=== PATIENT | female | born 1960 | race Caucasian/White ===

== ENCOUNTER 2020-04-29 07:28 | Outpatient (REF) | payer OTHER, SELFPAY ==
[2020-04-29 11:46] LABS: Cholesterol 229 mg/dL; HDL Cholesterol 50 mg/dL; LDL Cholesterol Calculated 166 mg/dl; Triglycerides 66 mg/dL
[2020-04-29 11:59] LABS: Free T4 (Free Thyroxine) 1.19 ng/dL (0.71-1.85)
[2020-05-04 12:52] LABS: Vitamin D 25-OH, D2 <4 ng/mL; Vitamin D 25-OH, D3 32 ng/mL; Vitamin D 25-OH, Total 32 ng/mL (30-100)
== END 2020-04-29 07:29 | disposition home or self-care (01) ==
LOC: HO.HMGCLDS 07:28
PROVIDERS: PCP Internal Medicine; Visit Provider Internal Medicine
DX: Z20.828 Contact with and (suspected) exposure to other viral communicable diseases (principal); E03.9 Hypothyroidism, unspecified; E78.5 Hyperlipidemia, unspecified; M85.88 Other specified disorders of bone density and structure, other site
CPT/HCPCS: 80061; 82306; 84439; 84443; 87635

== ENCOUNTER 2021-03-01 07:55 | Outpatient (REF) | payer OTHER, SELFPAY ==
[2021-03-01 12:00] LABS: Cholesterol 231 mg/dL; HDL Cholesterol 49 mg/dL; LDL Cholesterol Calculated 163 mg/dl; Triglycerides 99 mg/dL
[2021-03-01 12:15] LABS: Free T4 (Free Thyroxine) 1.22 ng/dL (0.71-1.85); Thyroid Stimulating Hormone 0.53 uIU/mL (0.32-4.0); Vitamin D 25-OH Total 41.7 ng/mL (>30)
== END 2021-03-01 07:56 | disposition home or self-care (01) ==
LOC: HO.HMGCLDS 07:55
PROVIDERS: PCP Internal Medicine; Visit Provider Internal Medicine
DX: E03.9 Hypothyroidism, unspecified (principal); E78.5 Hyperlipidemia, unspecified; M85.80 Other specified disorders of bone density and structure, unspecified site
CPT/HCPCS: 36415; 80061; 82306; 84439; 84443

== ENCOUNTER 2022-08-03 08:07 | Outpatient (REF) | payer OTHER, SELFPAY ==
[2022-08-03 12:07] LABS: Alanine Aminotransferase 25 U/L (0-31); Anion Gap 10 (12-20); Aspartate Amino Transferase 14 U/L (5-31); Blood Urea Nitrogen 22 mg/dL (9-16); Carbon Dioxide 32 mmol/L (22-29); Chloride 103 mmol/L (96-108); Cholesterol 268 mg/dL; Estimated Glomerular Filt Rate > 60; Glucose Fasting 102 mg/dL (60-99); HDL Cholesterol 44 mg/dL; LDL Cholesterol Calculated 195 mg/dl; Potassium 4.1 mmol/L (3.3-5.1); Sodium 141 mmol/L (135-145); Triglycerides 145 mg/dL
[2022-08-03 12:10] LABS: Free T4 (Free Thyroxine) 1.01 ng/dL (0.71-1.85); Thyroid Stimulating Hormone 1.14 uIU/mL (0.32-4.0); Vitamin D 25-OH Total 32.7 ng/mL (>30)
== END 2022-08-03 08:08 | disposition home or self-care (01) ==
LOC: HO.HMGCLDS 08:07
PROVIDERS: PCP Internal Medicine; Visit Provider Internal Medicine
DX: M85.80 Other specified disorders of bone density and structure, unspecified site (principal); E78.5 Hyperlipidemia, unspecified; E03.9 Hypothyroidism, unspecified
CPT/HCPCS: 36415; 80048; 80061; 82306; 84439; 84443; 84450; 84460

== ENCOUNTER 2022-09-13 06:31 | Day surgery (SDC) | payer OTHER, SELFPAY ==
--- NOTE | 2022-09-12 09:48 | HO.ANESPROP2 ---
Documented by User: Carole Muhammad NP 09/12/22 09:49 HPI - Anesthesia Eval Consult details Narrative: 62yo F for Colonoscopy PMFSH Active Problems Active Problems: All Active Problems (Updated 07/11/22 @ 18:17 by Gayatri Dominguez MD) Fracture of glenoid process of right scapula (Acute) Fracture of right inferior pubic ramus (Acute) Osteopenia after menopause (Acute) Dyslipidemia (Acute) Acquired hypothyroidism (Acute) Past Medical History Medical History Acquired hypothyroidism Dyslipidemia Fracture of glenoid process of right scapula Fracture of right inferior pubic ramus Osteopenia after menopause Family History Family History Father Medical history non-contributory Mother Medical history non-contributory Sister No problems noted. Son No problems noted. Son No problems noted. Son No problems noted. Surgical History Surgical History H/O colonoscopy History of partial thyroidectomy Hx of myomectomy Social History Social History Housing: House Alcohol intake: current Alcohol intake frequency: holidays/special occasions only Patient Tobacco Use Status: Never used Tobacco Use of substances other than those prescribed or required for medical reasons: No Are you DNR?: No Advance Directives: No Advance Directives Information Provided: Yes service: No Current occupational status: employed Meds Allergies Allergy/AdvReac Type Severity Reaction Status Date / Time meperidine [From DEMEROL] Allergy Unknown N/V, RASH Verified 09/13/22 06:39 oxycodone [OXYCODONE] AdvReac Intermediate NAUSEA Verified 09/13/22 06:39 Sulfa (Sulfonamide AdvReac Unknown Nausea and Verified 09/13/22 06:39 Antibiotics) Vomiting Darvon AdvReac Unknown vomiting Uncoded 09/13/22 06:39 Home Medications Medication Instructions Recorded Confirmed Last Taken Type cholecalciferol (vitamin D3) 50 50 mcg PO DAILY 05/10/20 09/13/22 Unknown History mcg (2,000 unit) capsule Exam Exam Date and Time: September 12, 2022 0948 Pertinent Lab Results Pertinent Lab Results: Laboratory Tests 04/02/18 08/03/22 07:36 08:17 WBC 4.2 L Hgb 14.6 Hct 44.2 Plt Count 190 Sodium 141 Potassium 4.1 Chloride 103 Carbon Dioxide 32 H BUN 22 H Creatinine 0.74 Assessment and Plan Assessment Anesthesia Assessment: Chart Reviewed Documented by User: Delilah Salguero MD 09/13/22 07:41 PMFSH Past Medical History Medical History Acquired hypothyroidism Dyslipidemia Fracture of glenoid process of right scapula Fracture of right inferior pubic ramus Osteopenia after menopause Family History Family History Father Medical history non-contributory Mother Medical history non-contributory Sister No problems noted. Son No problems noted. Son No problems noted. Son No problems noted. Surgical History Surgical History H/O colonoscopy History of partial thyroidectomy Hx of myomectomy History of Problems with Anesthesia: No Social History Social History Housing: House Alcohol intake: current Alcohol intake frequency: holidays/special occasions only Patient Tobacco Use Status: Never used Tobacco Use of substances other than those prescribed or required for medical reasons: No Are you DNR?: No Advance Directives: No Advance Directives Information Provided: Yes service: No Current occupational status: employed Meds Allergies Allergy/AdvReac Type Severity Reaction Status Date / Time meperidine [From DEMEROL] Allergy Unknown N/V, RASH Verified 09/13/22 06:39 oxycodone [OXYCODONE] AdvReac Intermediate NAUSEA Verified 09/13/22 06:39 Sulfa (Sulfonamide AdvReac Unknown Nausea and Verified 09/13/22 06:39 Antibiotics) Vomiting Darvon AdvReac Unknown vomiting Uncoded 09/13/22 06:39 Home Medications Medication Instructions Recorded Confirmed Last Taken Type cholecalciferol (vitamin D3) 50 50 mcg PO DAILY 05/10/20 09/13/22 Unknown History mcg (2,000 unit) capsule Exam Airway Mallampati Class: II TM Dist: >3cm Neck ROM: Full Loose/Missing/Broken Teeth: No Heart: RRR Lungs: CTA Assessment and Plan Assessment Anesthesia Assessment: Anesthesia Plan Discussed Final Anesthetic Review History of Problems with Anesthesia: No NPO: Yes ASA Class: II Final Preanesthetic Review: Meds/Allgs Chart Reviewed, Consent Obtained/Reviewed and Anes Risks/Benef Reviewed Patient Risk: Low Procedure Risk: Low Anesthetic Plan Anesthetic Plan: MAC: Disposition: Standard PACU
[2022-09-13 06:42] VITALS: BMI 26.6
[2022-09-13 06:47] VITALS: BP 113/76; PULSE 63; RESP 16; TEMP 36.2; O2SAT 100
[2022-09-13] MEDS: Lactated Ringers 1,000 ML 100 ML IVCONT (06:55)
[2022-09-13 08:37] VITALS: BP 90/50; PULSE 60; RESP 12; TEMP 36.6; O2SAT 97
--- NOTE | 2022-09-13 08:38 | PM.OP ---
Brief Operative Note Date of Service: 09/13/22 Pre-op diagnosis: Screening Post-op diagnosis: other (Colon polyps) Procedure: Colonoscopy to the cecum with hot snare polypectomy x 3, and bx/removal of polyps x 2. Surgeon: Jay Rae Anesthesia: MAC Was an Miniature Set Constructor used for this Procedure?: No Estimated blood loss (mL): 2.0 Pathology: other (A. Polyp at 60cm B. Cecal polyp C. Proximal ascending colon polyp D.Transverse colon polyp E. Polyp at 20cm) Condition: stable Disposition: PACU
[2022-09-13 08:52] VITALS: BP 102/66; PULSE 56; RESP 16; O2SAT 98
[2022-09-13 09:08] VITALS: BP 104/64; PULSE 50; RESP 16; TEMP 36.6; O2SAT 100
--- NOTE | 2022-09-13 20:39 | OP_ITS ---
/ SURGEON: Jay Rae MD INDICATIONS: The patient presents for followup of a personal history of tubular adenomas of the colon, family history of colon cancer, and colorectal cancer screening. Full consent has been obtained from her for this, including risks of bleeding and perforation. PREOPERATIVE DIAGNOSIS: POSTOPERATIVE DIAGNOSIS: PROCEDURE PERFORMED: Colonoscopy to the cecum with hot snare polypectomy x 3, and biopsy and removal of polyps x 2. ESTIMATED BLOOD LOSS: COMPLICATIONS: ANESTHESIA: Monitored anesthesia care. ASSISTANTS: SPECIMENS: PREOPERATIVE DIAGNOSES: Personal history of tubular adenomas of the colon, family history of colon cancer, and colorectal cancer screening. POSTOPERATIVE DIAGNOSES: Personal history of tubular adenomas of the colon, family history of colon cancer, colorectal cancer screening, colon polyps, diverticulosis, and internal hemorrhoids. PROCEDURE IN DETAIL: The patient was placed in the left lateral decubitus position. The digital rectal exam revealed no abnormalities. The Olympus video pediatric colonoscope was entered into the rectum and advanced easily to the cecum. Once in the cecum, I did identify the cecal pouch with appendiceal orifice and a normal-appearing ileocecal valve. The entire cecum was well-visualized. There was an approximately 10 mm polyp in the cecum, which was removed by hot snare polypectomy and recovered by suction. The polypectomy site appeared clean, without any sign of residual polyp nor bleeding. The scope was then slowly withdrawn assessing all mucosal surfaces carefully. Preparation was excellent after her 2 day prep. In the proximal ascending colon was an approximately 10 mm polyp which was removed by hot snare polypectomy and recovered by suction. The polypectomy site appeared clean, without any sign of residual polyp nor bleeding. In the transverse colon and at 60 cm were approximately 3 or 4 mm polyps, which were each biopsied and completely removed with a cold biopsy forceps. At 20 cm was an approximately 6 mm polyp which was removed by hot snare polypectomy and recovered by suction. The polypectomy site appeared clean, without any sign of residual polyp nor bleeding. I did not visualize any other polyps, colitis, nor angiodysplasia. There was a mild amount of sigmoid diverticulosis. In the rectum, the scope was retroflexed, visualizing internal hemorrhoids, but no other pathology. The rectal mucosa appeared normal. The scope was straightened and withdrawn from the patient. She tolerated the procedure well and was returned to the recovery area in stable condition. IMPRESSION: 1. Colon polyps. 2. Diverticulosis. 3. Internal hemorrhoids. PLAN: The results of the pathology will be checked. I would recommend a repeat colonoscopy in 5 years. She was advised not to use any aspirin or NSAIDS for one week. She as advised to continue her bowel regimen with some Metamucil and MiraLax regularly to avoid constipation. She would see me otherwise on a p.r.n. basis. This has been discussed with her via leaving a voicemail for him. MD YODIT Lutz/LEISA / [id number] MTDD
== END 2022-09-13 09:52 | disposition home or self-care (01) ==
PROVIDERS: PCP Internal Medicine; Visit Provider Internal Medicine
PROC: 0DJD8ZZ Inspection of Lower Intestinal Tract, Via Natural or Artificial Opening Endoscopic (ICD-10-PCS; CPT 45378; principal; 2022-09-13 07:30)
DX: Z12.11 Encounter for screening for malignant neoplasm of colon (principal); Z86.010 Personal history of colon polyps; Z80.0 Family history of malignant neoplasm of digestive organs; D12.0 Benign neoplasm of cecum; D12.2 Benign neoplasm of ascending colon; D12.3 Benign neoplasm of transverse colon; D12.4 Benign neoplasm of descending colon; D12.5 Benign neoplasm of sigmoid colon; K57.30 Diverticulosis of large intestine without perforation or abscess without bleeding; K64.8 Other hemorrhoids; E89.0 Postprocedural hypothyroidism; K59.00 Constipation, unspecified; E78.00 Pure hypercholesterolemia, unspecified; Z88.2 Allergy status to sulfonamides; Z88.8 Allergy status to other drugs, medicaments and biological substances; Z79.899 Other long term (current) drug therapy; Z98.890 Other specified postprocedural states
CPT/HCPCS: 45385; 45380; 88305; J2405

== ENCOUNTER 2023-03-16 08:18 | Outpatient (AMB) | payer OTHER, SELFPAY ==
[2023-03-16 08:21] VITALS: BP 118/68; PULSE 63; O2SAT 100; BMI 28.7
--- NOTE | 2023-03-16 08:21 | A.OFFPC_ITS ---
<Statement entered by Gayatri Dominguez MD - 08/02/25 23:59> This note has been administratively?closed. Vital Signs 03/16/23 08:21 Height 5 ft 4 in Weight 167 lb BMI 28.7 BP 118/68 Blood Pressure Location Rt brachial Position Sitting Pulse 63 Pulse Source Pulse Oximeter Pulse Oximetry (%) 100 Intake Visit Reasons: Physical exam Intake Note: pt is here for annual exam Unloading Checker Required: No Accompanied by: Self / Same As Patient Allergies meperidine (From DEMEROL) Allergy (Unknown, Verified 06/15/25 13:34) N/V, RASH oxycodone (OXYCODONE) Adverse Reaction (Intermediate, Verified 06/15/25 13:34) NAUSEA Sulfa (Sulfonamide Antibiotics) Adverse Reaction (Unknown, Verified 06/15/25 13:34) Nausea and Vomiting Darvon Adverse Reaction (Unknown, Uncoded 06/15/25 13:34) vomiting Tobacco use date assessed: 03/16/23 Dental Screening Dental Screen Date: 03/16/23 Did you have a dental visit in the last 12 months?: Yes Did you have a dental problem in the last 6 months where you did not have access to dental care?: No Was dental information given to patient?: Patient has dentist [facility] Medical History Osteopenia of multiple sites Fracture of glenoid process of right scapula Fracture of right inferior pubic ramus Dyslipidemia Acquired hypothyroidism Surgical History Hx of myomectomy H/O colonoscopy History of partial thyroidectomy Family History Father Medical history non-contributory Mother Medical history non-contributory Sister No problems noted. Son No problems noted. Son No problems noted. Son No problems noted. 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 1. Little interest or pleasure in doing things: not at all 2. Feeling down, depressed, or hopeless: not at all 3. Trouble falling or staying asleep, or sleeping too much: several days 4. Feeling tired or having little energy: several days 5. Poor appetite or overeating: not at all 6. Feeling bad about yourself - or that you are a failure or have let yourself or your family down: not at all 7. Trouble concentrating on things, such as reading the newspaper or watching television: not at all 8. Moving or speaking so slowly that other people could have noticed. Or the opposite - being so fidgety or restless that you have been moving around a lot more than usual: not at all 9. Thoughts that you would be better off or of hurting yourself in some way: not at all Total score: 2 Depression Screening Interpretation: Negative 18874 - PHQ-9 Billing: Yes Source: Developed by Drs. Jay Parmar, Bela Young, Everett Bell and colleagues, with an educational genaro from [employer]. Thrive Questionnaire Date Thrive assessed: 03/16/23 I am a: Patient What is your living situation today?: I have a steady place to live Within the past 12 months, did the food you bought not last and you didn't have the money to get more?: Never true Within the past 12 months, did you worry whether your food would run out before you got money to buy more?: Never true Do you have trouble paying for medicines?: No Do you have trouble getting transportation to medical appointments?: No Do you have trouble paying your heating and electricity bill?: No Do you have trouble taking care of your child, family member or friend?: No Do you have trouble with day-to-day activities such as bathing, preparing meals, shopping, managing finances, etc.?: No Are you currently unemployed and looking for a job?: No Are you interested in more education?: No Please select the resources that you would like help with: None Currently or been in a relationship where the following occur: no concerns reported AUDIT C Alcohol Use Questionnaire (AUDIT-C) 3. How often do you have six or more drinks on one occasion?: Never Total Score: 0 DUSTY-7 AMB Questionnaire DUSTY-7 Date DUSTY - 7 assessed: 03/16/23 Feeling nervous, anxious, or on edge: 0 = Not at all Not being able to stop or control worryin = Not at all Worrying too much about different things: 0 = Not at all Trouble relaxin = Several days Being so restless that it is hard to sit still: 0 = Not at all Becoming easily annoyed or irritable: 0 = Not at all Feeling afraid as if something awful might happen: 0 = Not at all Total DUSTY-7 score (0-4 normal; 5-9 mild; 10-14 moderate; 15-21 severe): 1 Source: Developed by Drs. Jay Parmar, Bela Young, Everett Bell and colleagues, with an educational genaro from [employer]. DUSTY-7 Assessment Billing DUSTY-7 Assessment Tool: DUSTY-7 Assessment 17633 Physical exam (Primary Care) Vital Signs: Last Vital Signs Pulse 63 03/16/23 08:21 BP 118/68 03/16/23 08:21 Pulse Ox 100 03/16/23 08:21 BMI result Body Mass Index 28.7 Tobacco/Smoking Status: Tobacco use Status Tobacco use date assessed 03/16/23 03/16/23 08:23 Patient Tobacco Use Status Never used Tobacco 03/16/23 08:23 e-Cigarette/Vaping Use Never Used 03/16/23 08:27 PHQ-9: PHQ-9 Score PHQ-9: Total score 2 03/16/23 09:29 Depression Screening Interpretation: Negative Thrive Assessment: Date of Thrive Assessment Date Thrive assessed 03/16/23 03/16/23 09:29 Currently or been in a relationship where the following occur: no concerns reported Coding Level of Care Code Admin Sign Off/No Billing Diagnoses Osteopenia after menopause M85.80 Dyslipidemia E78.5 Acquired hypothyroidism E03.9 Annual visit for general adult medical examination with abnormal findings Z00.01 Additional Codes DUSTY-7 Assessment Billing - DUSTY-7 Assessment Tool: DUSTY-7 Assessment 49948 ([id number])
== END 2023-03-16 09:56 | disposition home or self-care (01) ==
PROVIDERS: Visit Provider Internal Medicine
DX: M85.80 Other specified disorders of bone density and structure, unspecified site (principal); E78.5 Hyperlipidemia, unspecified; E03.9 Hypothyroidism, unspecified; Z00.01 Encounter for general adult medical examination with abnormal findings
CPT/HCPCS: 99499

== ENCOUNTER 2024-03-24 07:37 | Outpatient (REF) | payer OTHER, SELFPAY ==
[2024-03-24 11:30] LABS: Alanine Aminotransferase 22 U/L (0-31); Anion Gap 10 (12-20); Aspartate Amino Transferase 15 U/L (5-31); Blood Urea Nitrogen 17 mg/dL (9-16); Calcium 9.1 mg/dL (8.4-10.2); Carbon Dioxide 30 mmol/L (22-29); Chloride 106 mmol/L (96-108); Cholesterol 256 mg/dL (<200); Estimated Glomerular Filt Rate > 60; Glucose Fasting 95 mg/dL (60-99); HDL Cholesterol 44 mg/dL (>40); LDL Cholesterol Calculated 190 mg/dL (<100); Potassium 4.4 mmol/L (3.3-5.1); Sodium 142 mmol/L (135-145); Triglycerides 110 mg/dL (<150)
[2024-03-24 11:51] LABS: Free T4 (Free Thyroxine) 1.07 ng/dL (0.71-1.85); Thyroid Stimulating Hormone 0.77 uIU/mL (0.32-4.0); Vitamin D 25-OH Total 46.3 ng/mL (>30)
== END 2024-03-24 07:38 | disposition home or self-care (01) ==
LOC: HO.HMGCLDS 07:37
PROVIDERS: PCP Internal Medicine; Visit Provider Internal Medicine
DX: M85.80 Other specified disorders of bone density and structure, unspecified site (principal); E78.5 Hyperlipidemia, unspecified; E03.9 Hypothyroidism, unspecified; Z13.1 Encounter for screening for diabetes mellitus
CPT/HCPCS: 36415; 80048; 80061; 82306; 84439; 84443; 84450; 84460

== ENCOUNTER 2024-05-05 13:15 | Outpatient (AMB) | payer MEDICARE, SELFPAY ==
[2024-05-05 14:21] VITALS: BP 120/72; PULSE 66; O2SAT 99; BMI 27.3
--- NOTE | 2024-05-05 14:21 | A.OFFPC_ITS ---
Vital Signs 05/05/24 14:21 Height 5 ft 4 in Weight 159 lb BMI 27.3 BP 120/72 Blood Pressure Location Rt brachial Position Sitting Pulse 66 Pulse Source Pulse Oximeter Pulse Oximetry (%) 99 Oxygen Delivery Method Room Air Intake Visit Reasons: PE/secondary covers-reschedule from 03/28 Intake Note: 64-year-old lady with past medical history significant for hypothyroidism, os teopenia, dyslipidemia, here today for her physical exam.. Allergies meperidine [From DEMEROL] Allergy (Unknown, Verified 05/05/24 14:30) N/V, RASH oxycodone [OXYCODONE] Adverse Reaction (Intermediate, Verified 05/05/24 14:30) NAUSEA Sulfa (Sulfonamide Antibiotics) Adverse Reaction (Unknown, Verified 05/05/24 14:30) Nausea and Vomiting Darvon Adverse Reaction (Unknown, Uncoded 05/05/24 14:30) vomiting Medication List - Last Reconciled 05/05/24 by Gayatri Dominguez MD cholecalciferol (vitamin D3) 50 mcg PO DAILY levothyroxine 150 mcg PO DAILY Tobacco use date assessed: 05/05/24 Fall risk assessment: No Falls in past year Last assessed Fall Risk: 05/05/24 Dental Screening Dental Screen Date: 05/05/24 Did you have a dental visit in the last 12 months?: Yes Did you have a dental problem in the last 6 months where you did not have access to dental care?: No Was dental information given to patient?: Patient has dentist HPI PE/secondary covers-reschedule from 03/28 HPI0 Details 64-year-old lady with past medical histo ry significant for hypothyroidism, osteopenia, dyslipidemia, here today for her physical exam.. She is up-to-date with her screening mammogram, last done 03/26/2024 done at [facility] which showed no mammographic evidence of malignancy, last cervical cancer screening was done at [facility] as well on 06/06/2023 which came back negative for malignancy, negative HPV. She had a bone density scan done 09/20/2022 which showed osteopenia in lumbar spine, right femoral neck and right hip, with marked decrease in bone density in her right hip joint, She had a colonoscopy done by Dr. Rae 09/13/2022 with removal of 5 tubular adenoma polyp, repeat due again in 2027. She is up-to-date with her shingles vaccination and Tdap, but has not yet had her COVID booster all yearly flu shot. [facility] Medical History (Updated 05/05/24 @ 15:02 by Gayatri Dominguez MD) Osteopenia of multiple sites Fracture of glenoid process of right scapula Fracture of right inferior pubic ramus Osteopenia after menopause Dyslipidemia Acquired hypothyroidism Surgical History Hx of myomectomy H/O colonoscopy History of partial thyroidectomy Family History Father Medical history non-contributory Mother Medical history non-contributory Sister No problems noted. Son No problems noted. Son No problems noted. Son No problems noted. 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 Cognitive needs: No Hearing needs: No Vision needs: No Female Reproductive History Menstrual control method: none Menopause type: natural Date of last pap smear: 06/06/23 (Done at [facility], negative) History of abnormal pap smear: No History of STI: No Date of Mammogram: 03/26/24 (Done at [facility]) Date of last Bone Density Screenin09/20/22 (Osteopenia of multiple sites, done at [facility]) Questionnaire PHQ-9 Over the last 2 weeks, how often have you been bothered by any of the following problems? 1. Little interest or pleasure in doing things: not at all 2. Feeling down, depressed, or hopeless: not at all 3. Trouble falling or staying asleep, or sleeping too much: several days 4. Feeling tired or having little energy: not at all 5. Poor appetite or overeating: not at all 6. Feeling bad about yourself - or that you are a failure or have let yourself or your family down: not at all 7. Trouble concentrating on things, such as reading the newspaper or watching television: not at all 8. Moving or speaking so slowly that other people could have noticed. Or the opposite - being so fidgety or restless that you have been moving around a lot more than usual: not at all 9. Thoughts that you would be better off or of hurting yourself in some way: not at all Total score: 1 Depression Screening Interpretation: Negative Depression Screening Done: Yes 77992 - PHQ-9 Billing: Yes Source: Developed by Drs. Jay Parmar, Bela Young, Everett Bell and colleagues, with an educational genaro from [employer]. Thrive Questionnaire Date Thrive assessed: 05/05/24 I am a: Patient What is your living situation today?: I have a steady place to live Within the past 12 months, did the food you bought not last and you didn't have the money to get more?: Never true Within the past 12 months, did you worry whether your food would run out before you got money to buy more?: Never true Do you have trouble paying for medicines?: No Do you have trouble getting transportation to medical appointments?: No Do you have trouble paying your heating and electricity bill?: No Do you have trouble taking care of your child, family member or friend?: No Do you have trouble with day-to-day activities such as bathing, preparing meals, shopping, managing finances, etc.?: No Are you currently unemployed and looking for a job?: No Are you interested in more education?: No Please select the resources that you would like help with: None Currently or been in a relationship where the following occur: No concerns reported THRIVE Score: 0 AUDIT C Alcohol Use Questionnaire (AUDIT-C) 3. How often do you have six or more drinks on one occasion?: Never Total Score: 0 DUSTY-7 AMB Questionnaire DUSTY-7 Date DUSTY - 7 assessed: 05/05/24 Source: Developed by Drs. Jay Parmar, Bela Young, Everett Bell and colleagues, with an educational genaro from [employer]. DUSTY-7 Assessment Billing DUSTY-7 Assessment Tool: pt declined-do not bill Review of Systems Const Denies body aches, Denies fatigue, Denies fever(s), Denies headache(s) and Denies weakness Eyes Details: [facility] eye [facility] ENT Denies dizziness, Denies headache(s), Denies nasal congestion, Denies nasal discharge and Denies sore throat Card Denies chest pain, Denies lightheadedness, Denies palpitations and Denies dyspnea Resp Denies chest congestion, Denies cough, Denies dyspnea and Denies wheezing GI Denies abdominal pain, Reports constipation and Denies heartburn Denies urinary frequency, Denies dysuria and Denies urinary urgency Musc Reports no additional complaints Skin/Breast Denies lesions and Denies rash Neuro Denies dizziness, Denies headache(s) and Denies weakness Psych Reports no additional complaints Endo Denies fatigue, Denies polydipsia, Denies polyuria and Denies palpitations Esteban/Lymph Denies easy bruising Aller/Immun Denies seasonal rhinorrhea and Denies wheezing Physical exam (Primary Care) Vital Signs: Last Vital Signs Pulse 66 05/05/24 14:21 BP 120/72 05/05/24 14:21 Pulse Ox 99 05/05/24 14:21 Oxygen Delivery Method Room Air 05/05/24 14:21 BMI result Body Mass Index 27.3 Tobacco/Smoking Status: Tobacco use Status Tobacco use date assessed 05/05/24 05/05/24 14:25 Patient Tobacco Use Status Never used Tobacco 05/05/24 14:25 e-Cigarette/Vaping Use Never Used 05/05/24 14:25 PHQ-9: PHQ-9 Score PHQ-9: Total score 1 05/12/24 00:45 Depression Screening Interpretation: Negative Thrive Assessment: Date of Thrive Assessment Date Thrive assessed 05/05/24 05/05/24 14:25 Currently or been in a relationship where the following occur: No concerns reported Advance Care Planning discussion: Completed/Scanned Date of discussion: 05/05/24 Who was present: Patient Forms completed: Health Care Proxy and MOLST Time spent: 16-45 minutes Actual minutes spent: 6 Const General: cooperative, comfortable and no acute distress Orientation/consciousness: patient oriented x3 HENMT Ears: hearing grossly normal bilaterally General nose exam: Normal external nose present Face and sinus: Yes normal facial exam and Yes face symmetric Mouth: Normal oral and palatal mucosa present and moist mucous membranes Eyes General: appearance normal, both eyes and all related structures Neck Other: Nonpalpable thyroid gland Neck: Yes full ROM, Yes no lymphadenopathy and Yes supple Chest Breast/axilla palpation: normal palpation of the breasts Resp Effort & Inspection: normal respiratory effort and able to speak in complete sentences Auscultation: clear to auscultation bilaterally Cardio Rate: regular rate Rhythm: regular rhythm Heart sounds: S1 normal heart sound present and S2 normal heart sound present GI Inspection: Yes normal to inspection Palpation (GI): Soft to palpation, nontender and no masses Auscultation: normal bowel sounds General: Yes deferred (Goes to OBGYN at [facility]) Back/Spine/Pelvis Cervical Spine: cervical ROM normal Thoracic/Lumbar Spine: thoracic and lumbar spine normal to inspection Skin General skin exam: no rashes or lesions noted Neuro General: patient oriented x3, gait normal, tone normal, moves all extremities, Normal light touch and pain sensation and no focal motor deficits Cognition (Neuro): normal cognition Gait exam (Neuro): Normal gait present Motor exam (neuro): 5/5 motor strength present throughout Extrem General: Yes normal to inspection, Yes full ROM, Yes no joint enlargement, Yes no clubbing, cyanosis or edema and Yes normal gait Psych Appearance: grossly normal Mental Status: mental status grossly normal Speech and movement: Normal speech and movement present Affect: normal affect Attitude: cooperative Thought process: Normal thought process present Immunizations Pneumovax-23 25 mcg/0.5 mL injection syringe Performing Provider: Gayatri Dominguez MD Performing Location: [facility] Administered by: Mindi Orellana CMA on 05/05/24 15:11 Dose Route Admin Location Dispensed Lot Number Expiration Date [facility] Metal Window Screen [employer]er 0.5 mL IM Right Deltoid 0.5 mL [id number] 05/05/24 1133-2307-68 [employer] & D VIS Given Date VIS Provided VIS Publication Date 05/05/24 Single Vaccine 19 Eligibility Eligibility Date Funding Source Not [facility] Eligible 05/05/24 Private Results Reviewed Results Reviewed: Name: Sarita Salomon Age/Sex: 63/F : 1960 Unit#: [id number] Attend Dr: Gayatri Dominguez MD Re03/24/24 Status: DEP REF Location: [facility] Disch: SPEC : [id number] YAEL: 03/24/24 STATUS: COMP REQ : [id number] RECD: 03/24/[address]: Gayatri Dominguez MD COMP: 03/24/24 ENTERED: 03/24/[address] [facility] [address]: ORDERED: Met Prof Fast, AST, ALT, Lipid Panel, Vitamin D 25-OH, Free T4, TSH Test Result Flag Reference Sodium 142 135-145 mmol/L Potassium 4.4 3.3-5.1 mmol/L CL 106 96-108 mmol/L CO2 30 H 22-29 mmol/L Gap 10 L 12-20 BUN 17 H 9-16 mg/dL Creat 0.75 0.5-1.4 mg/dL EGFR > 60 NOTE: For -German individuals, multiply the result by 1.210. Chronic Kidney Disease: Estimated GFR < 60 mL/min/1.73m2 Severe Kidney Disease: Estimated GFR < 15 mL/min/1.73m2 FBS 95 60-99 mg/dL CA 9.1 8.4-10.2 mg/dL AST (GOT) 15 5-31 U/L ALT (GPT) 22 0-31 U/L Triglyceride 110 <150 mg/dL Desirable Triglyceride: less than 150 mg/dL Borderline High Triglyceride 150-199 mg/dL High Triglyceride: 200-499 mg/dL Very High Triglyceride: greater than or equal to 5OO mg/dL Cholesterol 256 H <200 mg/dL Desirable Cholesterol: less than 200 mg/dL Borderline High Cholesterol: 200-239 mg/dL High Cholesterol: greater than 239 mg/dL LDL Calculated 190 H <100 mg/dL Desirable LDL: less than 100 mg/dL Near Optimal/Above Optimal LDL: 110-129 mg/dL Borderline High LDL: 130-159 mg/dL High LDL: 160-189 mg/dL Very High LDL: greater than or equal to 190 mg/dL HDL 44 >40 mg/dL Desirable HDL: greater than 40 mg/dL Note: This HDL assay may give artificially low results in patients with liver disease. Vit D 25-OH Tot 46.3 >30 ng/mL Health Based Reference Values* < 20 ng/mL Deficient 20-30 ng/mL Insufficient > 30 ng/mL Sufficient *Janelle MCKEON. N Engl J Med. 2007;[id number]:266-280 Care must be taken in interpreting Vitamin D results from different laboratories and methodologies. Published data demonstrated that results from patients undergoing hemodialysis may show a negative bias when tested with various automated 25-OH vitamin D assays when compared to LC-MS/MS. When testing samples from patients whose predominant form of Vitamin D is Vitamin D2, such as patients receiving Vitamin D2 supplementation, results that are subtherapeutic should be confirmed with another method such as LC-MS/MS. Free T4 1.07 0.71-1.85 ng/dL TSH 3rd Gen. 0.77 0.32-4.0 uIU/mL TSH 3rd Generation ([facility]) Coding Level of Care Code Est Pt Prev Care >65y(70095) Diagnoses Annual visit for general adult medical examination with abnormal findings Z00.01 Osteopenia of multiple sites M85.89 Dyslipidemia E78.5 Acquired hypothyroidism E03.9 Advanced directives, counseling/discussion Z71.89 Additional Codes Vital Signs *Quality* - Advance Care Planning discussion: Completed/Scanned ([id number]) Vital Signs *Quality* - Time spent: 16-45 minutes ([id number]) Assessment & Plan Assessment & Plan (1) Annual visit for general adult medical examination with abnormal findings: Code(s): Z00.01 - Encounter for general adult medical examination with abnormal findings Plan: Will check appropriate labs. Continue regular dental visit every 6 months and regular eye exams, at least every 2 years., goes to [facility] eye Take adequate calcium in diet and vitamin-D 3 at 2000 IU per cap once a day, in addition to weight-bearing exercises to help maintain good muscle tone and weight control. Instructed to do self-breast exam, and continue with yearly mammogram, currently up-to-date. Had a bone density done in 2022, showing osteopenia in multiple sites, repeat due again in 2024 she is due for repeat screening colonoscopy again [place] [address] Rae . Prevnar 20 given today. Up-to-date with her shingles vaccine and Tdap. Does not want to get a COVID booster or the flu shot this year. (2) Osteopenia of multiple sites: Code(s): M85.89 - Other specified disorders of bone density and structure, multiple sites Category: Medical Plan: Advised doing regular weight-bearing exercise, patient skis during the winter, continue with taking adequate calcium from dietary sources and vitamin-D 3 supplements at least 2000 units daily. Repeat another bone density scan in 2024 (3) Dyslipidemia: Code(s): E78.5 - Hyperlipidemia, unspecified Category: Medical Plan: Discussed recent fasting lab results with patient which showed marked elevation in her LDL cholesterol. Patient has been adhering to healthy eating habits and exercising regularly. Would like to avoid statin, and try lowering her cholesterol levels through diet and exercise. Will recheck again a fasting lipid in 09/18/2024 and decide whether to start definitive treatment, per patient request (4) Acquired hypothyroidism: Code(s): E03.9 - Hypothyroidism, unspecified Category: Medical Plan: Recent thyroid levels are within normal limits, continue with current dose of levothyroxine 150 mcg taken once a day in a.m. (5) Advanced directives, counseling/discussion: Code(s): Z71.89 - Other specified counseling Plan: Initiated the conversation about Advanced Directives. Advanced Directives help patients prepare for current and future decisions about their medical treatment and place of care. Discussed with patient that it is a process where a patients current condition and prognosis are reviewed, their wishes for information regarding their illness are elicited, and likely medical dilemmas are presented and options discussed. MOLST form and healthcare proxy form completed today. These forms can be amended as needed, reviewed yearly and make changes as needed Orders: Orders Aspartate Amino Transferase 08/30/24 E03.9 - Hypothyroidism, unspecified, E78.5 - Hyperlipidemia, unspecified, M85.89 - Other specified disorders of bone density and structure, multiple sites Thyroid Stimulating Hormone 08/30/24 E03.9 - Hypothyroidism, unspecified, E78.5 - Hyperlipidemia, unspecified, M85.89 - Other specified disorders of bone density and structure, multiple sites Free T4 (Free Thyroxine) 08/30/24 E03.9 - Hypothyroidism, unspecified, E78.5 - Hyperlipidemia, unspecified, M85.89 - Other specified disorders of bone density and structure, multiple sites Vitamin D 25-OH Total 08/30/24 E0.9 - Hypothyroidism, unspecified, E78.5 - Hyperlipidemia, unspecified, M85.89 - Other specified disorders of bone density and structure, multiple sites Lipid Panel 08/30/24 E03.9 - Hypothyroidism, unspecified, E78.5 - Hy perlipidemia, unspecified, M85.89 - Other specified disorders of bone density and structure, multiple sites Alanine Aminotransferase 08/30/24 E03.9 - Hypothyroidism, unspecified, E78.5 - Hyperlipidemia, unspecified, M85.89 - Other specified disorders of bone density and structure, multiple sites Pneumococcal 23 Immunization 05/05/24 Z23 - Encounter for immunization
== END 2024-05-05 15:19 | disposition home or self-care (01) ==
LOC: HO.HMCC 13:20
PROVIDERS: PCP Internal Medicine; Visit Provider Internal Medicine
DX: Z00.00 Encounter for general adult medical examination without abnormal findings (principal); E03.9 Hypothyroidism, unspecified; M85.89 Other specified disorders of bone density and structure, multiple sites; E78.5 Hyperlipidemia, unspecified

== ENCOUNTER → 2024-05-05 13:15 | Outpatient (BNVA) | payer MEDICARE, SELFPAY | PROVIDERS: PCP Internal Medicine; Visit Provider Internal Medicine | DX: Z00.01 Encounter for general adult medical examination with abnormal findings (principal); Z23 Encounter for immunization; M85.89 Other specified disorders of bone density and structure, multiple sites; E78.5 Hyperlipidemia, unspecified; E03.9 Hypothyroidism, unspecified; Z71.89 Other specified counseling | CPT/HCPCS: 90471; 90732; 96127; 99212; 99397; 99497 ==

== ENCOUNTER 2024-10-22 06:45 | Outpatient (REF) | payer MEDICARE, SELFPAY ==
[2024-10-22 11:04] LABS: Alanine Aminotransferase 22 U/L (0-31); Aspartate Amino Transferase 19 U/L (5-31); Cholesterol 239 mg/dL (<200); HDL Cholesterol 51 mg/dL (>40); LDL Cholesterol Calculated 170 mg/dL (<100); Triglycerides 92 mg/dL (<150)
[2024-10-22 11:21] LABS: Thyroid Stimulating Hormone 0.37 uIU/mL (0.32-4.0); Vitamin D 25-OH Total 53.7 ng/mL (>30)
== END 2024-10-22 06:46 | disposition home or self-care (01) ==
LOC: HO.HMGCLDS 06:45
PROVIDERS: PCP Internal Medicine; Visit Provider Internal Medicine
DX: M85.89 Other specified disorders of bone density and structure, multiple sites (principal); E78.5 Hyperlipidemia, unspecified; E03.9 Hypothyroidism, unspecified
CPT/HCPCS: 36415; 80061; 82306; 84439; 84443; 84450; 84460

== ENCOUNTER 2024-11-21 08:25 | Outpatient (AMB) | payer MEDICARE, SELFPAY ==
--- NOTE | 2024-11-21 08:22 | A.OFFPC_ITS ---
Vital Signs 11/21/24 08:24 Height 5 ft 4 in Weight 157 lb BMI 26.9 Intake Visit Reasons: Follow up Intake Note: Pt is having a telehealth visit to discuss recent lab results Allergies meperidine [From DEMEROL] Allergy (Unknown, Verified 11/21/24 08:22) N/V, RASH oxycodone [OXYCODONE] Adverse Reaction (Intermediate, Verified 11/21/24 08:22) NAUSEA Sulfa (Sulfonamide Antibiotics) Adverse Reaction (Unknown, Verified 11/21/24 08:22) Nausea and Vomiting Darvon Adverse Reaction (Unknown, Uncoded 11/21/24 08:22) vomiting Tobacco use date assessed: 11/21/24 Fall risk assessment: No Falls in past year Last assessed Fall Risk: 11/21/24 Dental Screening Dental Screen Date: 11/21/24 Did you have a dental visit in the last 12 months?: Yes Did you have a dental problem in the last 6 months where you did not have access to dental care?: No Was dental information given to patient?: Patient has dentist HPI Follow up HPI Details 64-year-old lady with history of dyslipi demia, hypothyroidism, here today for her follow-up. She states that she has adjusted her diet has been eating less carbs, and has been eating more lean protein, vegetables and increase dietary fiber. She is very active, states that she is scared approximately 28 days this winter, and in his starting to go to the gym for exercise. She has been feeling well, with no complaints at present time except for occasional aches and pains after exercise which resolved spontaneously. Latest fasting labs showed improvement in her LDL cholesterol has dropped 20 points as compared to last check, with triglycerides and HDL cholesterol within normal limits. Her thyroid levels are within normal limits as well as vitamin-D levels. [facility] Medical History Osteopenia of multiple sites Fracture of glenoid process of right scapula Fracture of right inferior pubic ramus Osteopenia after menopause Dyslipidemia Acquired hypothyroidism Surgical History Hx of myomectomy H/O colonoscopy History of partial thyroidectomy Family History Father Medical history non-contributory Mother Medical history non-contributory Sister No problems noted. Son No problems noted. Son No problems noted. Son No problems noted. 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 1. Little interest or pleasure in doing things: not at all 2. Feeling down, depressed, or hopeless: not at all 3. Trouble falling or staying asleep, or sleeping too much: not at all 4. Feeling tired or having little energy: not at all 5. Poor appetite or overeating: not at all 6. Feeling bad about yourself - or that you are a failure or have let yourself or your family down: not at all 7. Trouble concentrating on things, such as reading the newspaper or watching television: not at all 8. Moving or speaking so slowly that other people could have noticed. Or the opposite - being so fidgety or restless that you have been moving around a lot more than usual: not at all 9. Thoughts that you would be better off or of hurting yourself in some way: not at all Total score: 0 Depression Screening Interpretation: Negative Depression Screening Done: Yes 56043 - PHQ-9 Billing: Yes Source: Developed by Drs. Jay Parmar, Bela Young, Everett Bell and colleagues, with an educational genaro from [employer]. Thrive Questionnaire Date Thrive assessed: 11/21/24 I am a: Patient What is your living situation today?: I have a steady place to live Within the past 12 months, did the food you bought not last and you didn't have the money to get more?: Never true Within the past 12 months, did you worry whether your food would run out before you got money to buy more?: Never true Do you have trouble paying for medicines?: No Do you have trouble getting transportation to medical appointments?: No Do you have trouble paying your heating and electricity bill?: No Do you have trouble taking care of your child, family member or friend?: No Do you have trouble with day-to-day activities such as bathing, preparing meals, shopping, managing finances, etc.?: No Are you currently unemployed and looking for a job?: No Are you interested in more education?: No Please select the resources that you would like help with: None Currently or been in a relationship where the following occur: No concerns reported THRIVE Score: 0 AUDIT C Alcohol Use Questionnaire (AUDIT-C) 1. How often do you have a drink containing alcohol?: Never Total Score: 0 DUSTY-7 AMB Questionnaire DUSTY-7 Date DUSTY - 7 assessed: 11/21/24 Feeling nervous, anxious, or on edge: 0 = Not at all Not being able to stop or control worryin = Not at all Worrying too much about different things: 0 = Not at all Trouble relaxin = Not at all Being so restless that it is hard to sit still: 0 = Not at all Becoming easily annoyed or irritable: 0 = Not at all Feeling afraid as if something awful might happen: 0 = Not at all Total DUSTY-7 score (0-4 normal; 5-9 mild; 10-14 moderate; 15-21 severe): 0 Source: Developed by Drs. Jay Parmar, Bela Young, Everett Bell and colleagues, with an educational genaro from [employer]. DUSTY-7 Assessment Billing DUSTY-7 Assessment Tool: DUSTY-7 Assessment 55298 Review of Systems Const Denies fever(s), Denies headache(s), Denies lethargy and Denies weakness Eyes Details: [facility] ENT Denies dizziness, Denies headache(s), Denies nasal congestion, Denies nasal discharge and Denies sore throat Card Denies chest pain, Denies lightheadedness and Denies dyspnea Resp Denies cough and Denies dyspnea GI Denies abdominal pain and Denies heartburn Denies urinary frequency, Denies dysuria and Denies urinary urgency Musc Reports no additional complaints (Except for occasional aches and pains, which resolves spontaneously) Skin/Breast Denies lesions and Denies rash Neuro Denies dizziness, Denies headache(s) and Denies weakness Psych Reports no additional complaints Endo Reports no additional complaints Esteban/Lymph Reports no additional complaints Aller/Immun Reports no additional complaints Physical exam (Primary Care) BMI result Body Mass Index 26.9 Tobacco/Smoking Status: Tobacco use Status Tobacco use date assessed 11/21/24 11/21/24 08:22 Patient Tobacco Use Status Never used Tobacco 11/21/24 08:22 e-Cigarette/Vaping Use Never Used 11/21/24 08:22 PHQ-9: PHQ-9 Score PHQ-9: Total score 0 11/21/24 08:24 Depression Screening Interpretation: Negative Thrive Assessment: Date of Thrive Assessment Date Thrive assessed 11/21/24 11/21/24 08:24 Currently or been in a relationship where the following occur: No concerns reported Telehealth Telehealth Telehealth [facility]: [facility] Location of provider rendering services: practice address Location of patient: address on file Patient Identification confirmed using: Name, : Yes Telehealth method: video Patient verbally consented to treatment: Yes Patient verbally consented to billing insurance company: Yes Patient informed of any privacy concerns related to visit: Yes Minutes spent on Phone/Video with Pt.: 15 Results Reviewed Results Reviewed: Name: Sarita Salomon Age/Sex: 64/F : 1960 Unit#: [id number] Attend Dr: Gayatri Dominguez MD Re10/22/24 Status: DEP REF Location: [facility] Disch: SPEC : [id number] YAEL: 10/22/24 STATUS: COMP REQ : [id number] RECD: 10/22/24-[address]: Gayatri Dominguez MD COMP: 10/22/24-112 ENTERED: 10/22/24-[address]: ORDERED: AST, ALT, Lipid Panel, Vitamin D 25-OH, Free T4, TSH Test Result Flag Reference AST (GOT) 19 5-31 U/L ALT (GPT) 22 0-31 U/L Triglyceride 92 <150 mg/dL Desirable Triglyceride: less than 150 mg/dL Borderline High Triglyceride 150-199 mg/dL High Triglyceride: 200-499 mg/dL Very High Triglyceride: greater than or equal to 5OO mg/dL Cholesterol 239 H <200 mg/dL Desirable Cholesterol: less than 200 mg/dL Borderline High Cholesterol: 200-239 mg/dL High Cholesterol: greater than 239 mg/dL LDL Calculated 170 H <100 mg/dL Desirable LDL: less than 100 mg/dL Near Optimal/Above Optimal LDL: 110-129 mg/dL Borderline High LDL: 130-159 mg/dL High LDL: 160-189 mg/dL Very High LDL: greater than or equal to 190 mg/dL HDL 51 >40 mg/dL Desirable HDL: greater than 40 mg/dL Note: This HDL assay may give artificially low results in patients with liver disease. Vitamin D 25-OH 53.7 >30 ng/mL Health Based Reference Values* < 20 ng/mL Deficient 20-30 ng/mL Insufficient > 30 ng/mL Sufficient *Janelle MCKEON. N Engl J Med. 2007;357:266-280 There is no well-established upper level of normal vitamin D levels. Some laboratories use 50 ng/mL as an upper limit of normal. However, toxicity is patient-dependent and may occur at any level. Careful correlation with the patient's presentation is necessary and, if there is concern for vitamin D toxicity, treatment should be considered irrespective of the serum level. Care must be taken in interpreting Vitamin D results fr om different laboratories and methodologies. Published data demonstrated that results from patients undergoing hemodialysis may show a negative bias when tested with various automated 25-OH vitamin D assays when compared to LC-MS/MS. When testing samples from patients whose predominant form of Vitamin D is Vitamin D2, such as patients receiving Vitamin D2 supplementation, results that are subtherapeutic should be confirmed with another method such as LC-MS/MS. Free T4 1.20 0.71-1.85 ng/dL TSH 3rd Gen. 0.37 0.32-4.0 uIU/mL TSH 3rd Generation ([facility]) Coding Level of Care Code Tele Est Pt Level 4 (29285) Diagnoses Acquired hypothyroidism E03.9 Dyslipidemia E78.5 Additional Codes PHQ-9 - 72014 - PHQ-9 Billing: Yes ([id number]) DUSTY-7 Assessment Billing - DUSTY-7 Assessment Tool: DUSTY-7 Assessment 21018 ([id number]) Assessment & Plan Assessment & Plan (1) Acquired hypothyroidism: Code(s): E03.9 - Hypothyroidism, unspecified Category: Medical Plan: Latest thyroid levels are within normal limits, continued on current dose of levothyroxine at 150 mcg once a day (2) Dyslipidemia: Code(s): E78.5 - Hyperlipidemia, unspecified Category: Medical Plan: Estimated ASCVD risk was 5.6%. Patient has stated that she does not want to start any medications at present time. Latest fasting lipids showed improvement in her LDL cholesterol level. Continue with lifestyle modifications with regular intensity exercise at least 3 to 4 times a week, healthy eating habits. Will repeat another fasting lipid panel in June 2025. Orders: Orders Lipid Panel 06/01/25 E03.9 - Hypothyroidism, unspecified, E78.5 - Hyperlipidemia, unspecified, M85.80 - Other specified disorders of bone density and structure, unspecified site, M85.89 - Other specified disorders of bone density and structure, multiple sites Thyroid Stimulating Hormone 06/01/25 E03.9 - Hypothyroidism, unspecified, E78.5 - Hyperlipidemia, unspecified, M85.80 - Other specified disorders of bone density and structure, unspecified site, M85.89 - Other specified disorders of bone density and structure, multiple sites Vitamin D 25-OH Total 06/01/25 E03.9 - Hypothyroidism, unspecified, E78.5 - Hyperlipidemia, unspecified, M85.80 - Other specified disorders of bone density and structure, unspecified site, M85.89 - Other specified disorders of bone density and structure, multiple sites Glucose Fasting 06/01/25 E03.9 - Hypothyroidism, unspecified, E78.5 - Hyperlipidemia, unspecified, M85.80 - Other specified disorders of bone density and structure, unspecified site, M85.89 - Other specified disorders of bone density and structure, multiple sites Free T4 (Free Thyroxine) 06/01/25 E03.9 - Hypothyroidism, unspecified, E78.5 - Hyperlipidemia, unspecified, M85.80 - Other specified disorders of bone density and structure, unspecified site, M85.89 - Other specified disorders of bone density and structure, multiple sites
[2024-11-21 08:24] VITALS: BMI 26.9
--- OUTSIDE RECORDS SUMMARY | 2024-11-21 08:31 | XMS_ITS | Patient Health Record ---
Author Organization [facility] Address [address] [place] [id number] Care Team Providers Care Hot Cell Technician Name Role Phone Gayatri Dominguez MD Primary Care Provider Jay Balderas [phone] Allergies Allergen (clinical drug ingredient) Drug/Non Drug Allergy documented on EMR Reaction Allergy Type Onset Date Status meperidine Demerol (uncoded) Unknown Allergy A ctive Reason For Referral No Information Medications Medication SIG (Take, Route, Frequency, Duration) Notes Start Date End Date Status Levoxyl Active Immunizations Vaccine Route Administration Date Status Comme nts Influenza Unknown 04/01/2022 Administered Social History Alcohol Screen Question Answer Notes Did you have a drink contain ing alcohol in the past year? Yes How often did you have a dri nk containing alcohol in the past year? Monthly or less (1 point) How many drinks did you have on a typical day when you were drinking in the past year? 1 or 2 drinks (0 point) How often did you have 6 or more drinks on one occasion in the past year? Never (0 point) Points 1 Interpretation Negative Section Notes: Nonsmoker;no significant alc ohol Nonsmoker; no significant al cohol Nonsmoker; no significant al cohol Problems Problem Type SNOMED Code ICD Code Onset Dates Problem Status W/U Status Risk Notes Problem Colon cancer screening (394388148) Colon cancer screening (Z12.11) Active confirmed Problem Rectal bleeding (19716785) Rectal bleeding (K62.5) Active confirmed Problem 176421976 Encounter for screening for malignant neoplasm of colon (Z12.11) Active confirmed Problem 462501760 History of adenomatous polyp of colon (Z86.010) Active confirmed Problem Constipation (66265278) Constipation (K59.00) Active confirmed Problem Diverticular disease of colon (721187846) Diverticulosis of large intestine without perforation or abscess without bleeding (K57.30) Active confirmed Problem 019532507 Preprocedural examination (Z01.818) Active confirmed Problem 468866116 Family history o f colon cancer (Z80.0) Active confirmed Plan Of Treatment Future Test Test Name Order Date COLONOSCOPY 03/05/2012 COLONOSCOPY 09/06/2017 COLONOSCOPY 06/06/2022 COLONOSCOPY 06/09/2022 Insurance Providers Payer Name Payer Address Payer Phone Subscriber Number Group Number Insured Name Patient Relationship to Insured Coverage Start Date Coverage End Date [facility] [address] [place] [phone] [id number] FREDDY AWAN Self - patient is the insured Medical (General) History Medical History History ICD Code Hx of tubular adenomas--colo noscopies in 1997 and May of 2012 small tubular adenomas that were removed; colonoscopies in 2000 and in 2006 were negative other than hyperplastic polyps; also noted was diverticulosis and internal hemorrhoids Hypothyroidism Denies GA,DM,CVA,Lung disease,renal dise ase High cholesterol Colonoscopy 08/2017 with small tubular ad enomas removed Surgical History Surgery Date(Month/Year) Partial thyroidectomy Laparascopic myomectomy for uterine fibr oids
== END 2024-11-21 09:11 | disposition home or self-care (01) ==
LOC: HO.HMCC 08:25
PROVIDERS: PCP Internal Medicine; Visit Provider Internal Medicine
DX: E03.9 Hypothyroidism, unspecified (principal); E78.5 Hyperlipidemia, unspecified

== ENCOUNTER → 2024-11-21 08:25 | Outpatient (BNVA) | payer MEDICARE, SELFPAY | PROVIDERS: PCP Internal Medicine; Visit Provider Internal Medicine | DX: E03.9 Hypothyroidism, unspecified (principal); E78.5 Hyperlipidemia, unspecified | CPT/HCPCS: 96127 ==

== ENCOUNTER 2025-06-10 07:41 | Outpatient (REF) | payer MEDICARE, SELFPAY ==
--- OUTSIDE RECORDS SUMMARY | 2025-06-10 08:04 | XMS_ITS | Clinical Summary ---
Author Organization [facility] Address [address] [place] [address] Care Team Providers Care Director Of Outpatient Services Name Role Phone Unavailable Primary Care Provider Unavailabl e Social History Tobacco Use Types Packs/Day Years Used Date Smoking Tobacco: Never Assessed Comments Unknown Sex and Gender Information Value Date Recorded Sex Assigned at Not on file Legal Sex Female 10:22 AM EST Gender Identity Not on file Sexual Orientation Not on file Plan of Treatment Health Maintenance Due Date Last Done Comments Breast Cancer Screening 1960 Colorectal Cancer Screening: Colonoscopy 1960 DTaP,Tdap,and Td Vaccines (1 - Tdap) 1978 Pneumococcal Vaccine: 50+ Years (1 of 1 - PCV) 2009 Zoster Vaccines (1 of 2) 2009 Hepatitis C Screening 06/04/2022 Osteoporosis Screening (Bone Density Screening) 06/04/2022 Social Influencers of Health Screening 06/04/2022 Falls Risk Assessment 2024 Depression Screening 07/02/2024 COVID-19 Vaccine (3 - 2024-2 6 season) 2025 08/25/2020, 08/04/2020 Influenza Vaccine (#1) 2025 RSV Immunization Adult Patients (1 - 1-dose 75+ series) 2034 HIB Vaccines Aged Out No longer eligi ble based on patient's age to complete this topic HPV Vaccines Aged Out No longer eligi ble based on patient's age to complete this topic Hepatitis A Vaccines Aged Out No long er eligible based on patient's age to complete this topic Hepatitis B Vaccines Aged Out No long er eligible based on patient's age to complete this topic IPV Vaccines Aged Out No longer eligi ble based on patient's age to complete this topic MMR Vaccines Aged Out No longer eligi ble based on patient's age to complete this topic Meningococcal ACWY Vaccine Aged Out N o longer eligible based on patient's age to complete this topic Meningococcal B Vaccine Aged Out No l onger eligible based on patient's age to complete this topic RSV Immunization Patients Under 20 months Aged Out No longer eligible b ased on patient's age to complete this topic Varicella Vaccines Aged Out No longer eligible based on patient's age to complete this topic
[2025-06-10 10:43] LABS: Cholesterol 225 mg/dL (<200); HDL Cholesterol 50 mg/dL (>40); Triglycerides 102 mg/dL (<150)
[2025-06-10 10:47] LABS: Free T4 (Free Thyroxine) 1.27 ng/dL (0.71-1.85); Thyroid Stimulating Hormone 0.08 uIU/mL (0.32-4.0)
== END 2025-06-10 07:42 ==
LOC: HO.HMGCLDS 07:41
PROVIDERS: PCP Internal Medicine; Visit Provider Internal Medicine
DX: M85.89 Other specified disorders of bone density and structure, multiple sites (principal); E78.5 Hyperlipidemia, unspecified; E03.9 Hypothyroidism, unspecified
CPT/HCPCS: 36415; 80061; 82306; 82947; 84439; 84443

== ENCOUNTER 2025-06-15 08:24 | Outpatient (AMB) | payer MEDICARE, SELFPAY ==
--- NOTE | 2025-06-15 08:31 | AM.OFFVISMDC ---
Intake Vital Signs 06/15/25 08:32 Height 5 ft 4 in Weight 163 lb BMI 28.0 BP 120/82 Blood Pressure Location Lt brachial Position Sitting Respiration 16 Pulse 66 Pulse Source Pulse Oximeter Temp 97.5 F Temp Source Oral Pulse Oximetry (%) 99 Oxygen Delivery Method Room Air Intake Visit Reasons: AWV [id number] Intake Note: Pt is here today for her AWV: last mammogram 03/26/24, bone density scan 09/20/22, colonoscopy 09/13/22, papsmear 06/06/2023 Brake Shoe Rebuilder Required: No Allergies meperidine (From DEMEROL) Allergy (Unknown, Verified 06/15/25 13:34) N/V, RASH oxycodone (OXYCODONE) Adverse Reaction (Intermediate, Verified 06/15/25 13:34) NAUSEA Sulfa (Sulfonamide Antibiotics) Adverse Reaction (Unknown, Verified 06/15/25 13:34) Nausea and Vomiting Darvon Adverse Reaction (Unknown, Uncoded 06/15/25 13:34) vomiting Medication List - Last Reconciled 06/15/25 by Gayatri Dominguez MD calcium carbonate (Calcium 600) 1,200 mg PO DAILY cholecalciferol (vitamin D3) 50 mcg PO DAILY levothyroxine 150 mcg PO DAILY HPI AWV G0438 HPI Details AWV ? 65-year-old lady with past medical history significant for hypothyroidism, dyslipidemia, osteopenia multiple sites , and history of fracture of right glenoid process and right pubic ramus after a ski accident, here today for her initial annual wellness visit She is up-to-date with her screening mammogram, last done 03/26/2024 which came back with normal findings, has an appointment already scheduled for her mammogram later today Last bone density scan was done 09/20/2022 which showed presence of osteopenia in multiple sites. She has been taking her calcium and vitamin-D 3 supplements and stays active, started skiing again after her accident. Her fasting lipid panel and fasting blood sugar was done 06/10/2025 which showed improvement in her LDL cholesterol but still not at goal of less than 100 mg/dL, and normal fasting glucose level. She has history of adenomatous polyps removed from last colonoscopy 09/13/2022, due for repeat colonoscopy again with in 2025. She does not want to get flu, pneumococcal vaccine or COVID booster . She however is up-to-date with her shingles vaccination and Tdap. She goes to [facility] for routine Pap and pelvic exam with last Pap smear done 06/06/2023 with normal findings. ? Medical / Social History Reviewed? Past Medical History ?Yes . ? [place] of Care / Care Team list updated ?Yes . ? Surgical/Hospitalization History ?Yes . ? Current Medications (including OTC and supplements) ?Yes . ? Family History ?Yes . ? Tobacco Control form ?Yes . ? AUDIT-C (Alcohol use) form ?Yes . ? Illicit drug use in Social History ?Yes . ? Current diagnosis of depression? ?No ? Appropriate PHQ2/PHQ9 completed ?Yes . ? Data entered by ?Orthophotography Technician and reviewed by provider ? Fall Risk ? Fall History? Have you had any falls with injury in the past year? ?No . ? Have you had two or more falls in the past year? ?No . ? Fall Risk Assessment: ?No falls in the past year . ? HRA filled out by the patient, reviewed by Provider and scanned. ?? ?AWV ? Balance? Romberg negative ? Tandem walk ?Yes . ? Walk and Turn ?Yes . ? Rise from sit to stand ?Yes . ?Vision? Corrective lens ?no ? Vision screen ? Up-to-date, goes to [facility] ?Hearing? Whisper test ?pass . ?Written Plan?Completed. See Patient Documents.?-Healthcare proxy form and MOLST form already done and in medical record [facility] Medical History Osteopenia of multiple sites Fracture of glenoid process of right scapula Fracture of right inferior pubic ramus Dyslipidemia Acquired hypothyroidism Surgical History Hx of myomectomy H/O colonoscopy History of partial thyroidectomy Family History Father Medical history non-contributory Mother Medical history non-contributory Sister No problems noted. Son No problems noted. Son No problems noted. Son No problems noted. 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 Cognitive needs: No Hearing needs: No Vision needs: No Questionnaire Medicare Wellness Checkup [age] What gender do you identify with?: female During the past 4 weeks, how much have you been bothered by emotional problems such as feeling anxious, depressed, irritable, sad or downhearted, and blue?: not at all During the past 4 weeks, has your physical & emotional health limited your social activities with family, friends, neighbors, or groups?: not at all During the past 4 weeks, how much bodily pain have you generally had?: very mild pain During the past 4 weeks, was someone available to help you if you needed & wanted help?: yes, as much as I wanted During the past 4 weeks, what was the hardest physical activity you could do for at least 2 minutes?: very heavy Can you get to places out of walking distance without help? (For eg., can you travel alone on buses, taxis or drive your car?): Yes Can you go shopping for groceries or clothes without someone's help?: Yes Can you prepare your own meals?: Yes Can you do your housework without help?: Yes Because of any health problems, do you need the help of another person with your personal care needs such as eating, bathing, dressing or getting around the house?: No Can you handle your own money without help?: Yes During the past 4 weeks, how would you rate your health in general?: excellent During the past 4 weeks how have things been going for you?: very well; could hardly better Are you having difficulties driving your car?: no Do you always fasten your seat belt when you are in a car?: yes, usually During past 4 weeks, have you been bothered by the following: never: Falling or dizzy when standing up, Sexual problems?, Trouble eating well?, Teeth or denture problems? and Problems using the telephone? and seldom: Tiredness or fatigue? Have you fallen 2 or more times in the past year?: No Are you afraid of falling?: No Are you a smoker?: no During the past 4 weeks, how many drinks of wine, beer, or other alcoholic beverages did you have?: no alcohol at all Do you exercise for about 20 minutes 3 or more times a week?: yes, all the time Have you been given information to help with the following?: no: Hazards in your house that might hurt you? and no: Keeping track of your medications? How often do you have trouble taking medicines the way you have been told to take them?: I always take medicine as prescribed How confident are you that you can control & manage most of your health problems?: very confident What is your race?: White Mini Mental State Exam (MMSE) Orientation What is the (year) (season) (date) (day) (month)?: year (2024), season (Fall), date (06/15/25), day (Sunday) and month () Where are we (state) (county) (town or city) (hospital) (floor)?: state ([facility]), county ([place]), town or city ([place]) and hospital/clinic ([facility] [place]) Score Score: 9 Activity of Daily Living Bathing - sponge bath, tub bath or shower: receives no assistance (gets in/out by self, if usual bathing means Dressing - getting clothes from closets & drawers, including inner/outer garments & fasteners.: gets clothes & gets completely dressed without help Toileting - going to the 'toilet room' for urine/bowel elimination & cleaning self/arranging clothes: goes to toilet room, cleans self, arranges clothes without help Transfer: moves in & out of bed and chair without help (may use support object) Continence: controls urination/bowel movements completely by self Feeding: feeds self without help Total Score: 0 Information obtained from: patient Using telephone: independent Traveling: independent Shopping: independent Preparing meals: independent Housework: independent Taking medicine: independent Managing money: independent PHQ-9 Over the last 2 weeks, how often have you been bothered by any of the following problems? 1. Little interest or pleasure in doing things: not at all 2. Feeling down, depressed, or hopeless: not at all 3. Trouble falling or staying asleep, or sleeping too much: not at all 4. Feeling tired or having little energy: not at all 5. Poor appetite or overeating: not at all 6. Feeling bad about yourself - or that you are a failure or have let yourself or your family down: not at all 7. Trouble concentrating on things, such as reading the newspaper or watching television: not at all 8. Moving or speaking so slowly that other people could have noticed. Or the opposite - being so fidgety or restless that you have been moving around a lot more than usual: not at all 9. Thoughts that you would be better off or of hurting yourself in some way: not at all Total score: 0 Depression Screening Interpretation: Negative Depression Screening Done: Yes 21732 - PHQ-9 Billing: Yes Source: Developed by Drs. Jay Parmar, Bela Young, Everett Bell and colleagues, with an educational genaro from [employer]. Physical Exam Vital Signs: Last Vital Signs Temp 97.5 F 06/15/25 08:32 Pulse 66 06/15/25 08:32 Resp 16 06/15/25 08:32 BP 120/82 06/15/25 08:32 Pulse Ox 99 06/15/25 08:32 Oxygen Delivery Method Room Air 06/15/25 08:32 BMI result Body Mass Index 28.0 Results Reviewed Results Reviewed: Name: Sarita Salomon Age/Sex: 65/F : 1960 Unit#: [id number] Attend Dr: Gayatri Dominguez MD Re06/10/25 Status: DEP REF Location: [facility] Disch: SPEC : [id number] YAEL: 06/10/25 STATUS: COMP REQ : [id number] RECD: 06/10/[address]: Gayatri Dominguez MD COMP: 06/10/25 ENTERED: 06/10/[address] [facility] [address]: ORDERED: Glu Fasting, Lipid Panel, Vitamin D 25-OH, Free T4, TSH Test Result Flag Reference FBS 92 60-99 mg/dL Triglyceride 102 <150 mg/dL Desirable Triglyceride: less than 150 mg/dL Borderline High Triglyceride 150-199 mg/dL High Triglyceride: 200-499 mg/dL Very High Triglyceride: greater than or equal to 5OO mg/dL Cholesterol 225 H <200 mg/dL Desirable Cholesterol: less than 200 mg/dL Borderline High Cholesterol: 200-239 mg/dL High Cholesterol: greater than 239 mg/dL LDL Calculated 155 H <100 mg/dL Desirable LDL: less than 100 mg/dL Near Optimal/Above Optimal LDL: 110-129 mg/dL Borderline High LDL: 130-159 mg/dL High LDL: 160-189 mg/dL Very High LDL: greater than or equal to 190 mg/dL HDL 50 >40 mg/dL Desirable HDL: greater than 40 mg/dL Note: This HDL assay may give artificially low results in patients with liver disease. Vitamin D 25-OH 61.1 >30 ng/mL Health Based Reference Values* < 20 ng/mL Deficient 20-30 ng/mL Insufficient > 30 ng/mL Sufficient *Janelle MCKEON. N Engl J Med. 2007;357:266-280 There is no well-established upper level of normal vitamin D levels. Some laboratories use 50 ng/mL as an upper limit of normal. However, toxicity is patient-dependent and may occur at any level. Careful correlation with the patient's presentation is necessary and, if there is concern for vitamin D toxicity, treatment should be considered irrespective of the serum level. Care must be taken in interpreting Vitamin D results from different laboratories and methodologies. Published data demonstrated that results from patients undergoing hemodialysis may show a negative bias when tested with various automated 25-OH vitamin D assays when compared to LC-MS/MS. When testing samples from patients whose predominant form of Vitamin D is Vitamin D2, such as patients receiving Vitamin D2 supplementation, results that are subtherapeutic should be confirmed with another method such as LC-MS/MS. Free T4 1.27 0.71-1.85 ng/dL TSH 3rd Gen. 0.08 L 0.32-4.0 uIU/mL TSH 3rd Generation ([facility]) Assessment & Plan Assessment & Plan (1) Encounter for initial annual wellness visit (AWV) in Medicare patient: Code(s): Z00.00 - Encounter for general adult medical examination without abnormal findings Plan: Medical wellness checklist reviewed, discussed with patient and updated. Patient already updated with her healthcare proxy and MOLST form. Declined getting flu vaccine and pneumococcal vaccination up-to-date with her shingles vaccine and Tdap (2) Osteopenia of multiple sites: Comment: Osteopenia in right femoral neck, right femur and AP spine, last bone density is scan done 09/20/2022, ordered by Alivia Garcia NP Code(s): M85.89 - Other specified disorders of bone density and structure, multiple sites Plan: Ordered a repeat bone density scan, continue with adherence to engage in regular moderate intensity exercise with weight-bearing, continue taking cataract calcium and vitamin-D 3 supplement (3) Dyslipidemia: Code(s): E78.5 - Hyperlipidemia, unspecified Plan: Reviewed with the latest fasting lipid panel with patient with improvement in her LDL cholesterol but still not at goal of less than 100 mg/dL. She has been compliant with healthy eating habits and gets regular exercise, but LDL cholesterol still remaining elevated. Will check CT coronary calcium score to help assess heart attack risk especially in his symptomatic patients with high cholesterol and provide guidance in treatment (4) Acquired hypothyroidism: Code(s): E03.9 - Hypothyroidism, unspecified Plan: Thyroid levels are within normal limits, continue current dose of levothyroxine 150 mcg daily Orders: Orders XR DEXA axial skeleton Today M85.89 - Other specified disorders of bone density and structure, multiple sites CT Coronary Calcium Score Today E78.5 - Hyperlipidemia, unspecified Quality Reporting (2019) Depression/Bipolar (159/160/161/177) PHQ-9: Total score: 0 Coding Level of Care Code Medicare First (G0438) Diagnoses Encounter for initial annual wellness visit (AWV) in Medicare patient Z00.00 Osteopenia of multiple sites M85.89 Dyslipidemia E78.5 Acquired hypothyroidism E03.9 CPT Codes Advance Care Planning - Advance Care Planning discussion: On file, no changes ([id number]) Advance Care Planning - Time spent: 1-15 minutes, on File ([id number]) Additional Codes PHQ-9 - 90707 - PHQ-9 Billing: Yes ([id number]) Advance Care Planning Advance Care Planning discussion: On file, no changes Date of discussion: 06/15/25 Who was present: Patient Forms completed: Health Care Proxy and MOLST Time spent: 1-15 minutes, on File Actual minutes spent: 1
[2025-06-15 08:32] VITALS: BP 120/82; PULSE 66; RESP 16; TEMP 36.4; O2SAT 99; BMI 28.0
== END 2025-06-15 09:42 | disposition home or self-care (01) ==
LOC: HO.HMCC 08:25
PROVIDERS: PCP Internal Medicine; Visit Provider Internal Medicine
DX: Z00.00 Encounter for general adult medical examination without abnormal findings (principal); M85.89 Other specified disorders of bone density and structure, multiple sites; E78.5 Hyperlipidemia, unspecified; E03.9 Hypothyroidism, unspecified

== ENCOUNTER → 2025-06-15 08:24 | Outpatient (BNVA) | payer MEDICARE, SELFPAY | PROVIDERS: PCP Internal Medicine; Visit Provider Internal Medicine | DX: Z13.31 Encounter for screening for depression (principal) | CPT/HCPCS: 96127 ==